=== PATIENT | female | born 2005 | race Caucasian/White ===

== ENCOUNTER 2024-12-23 22:27 | Emergency (ER) | payer OTHER, SELFPAY ==
[2024-12-23 22:30] VITALS: BP 129/80
--- NOTE | 2024-12-24 01:25 | ED.GENMED ---
History of Present Illness
General
Chief Complaint: Musculo-Skeletal Complaint
Source: patient
Exam Limitations: none
Time Seen by Provider: 12/24/24 01:15
Nursing documentation reviewed up to this point in time: agreed with
History of Present Illness
History of Present Illness:
This is a 18-year-old female who states while lifting weights this evening, wearing lifting shoes which are mostly sock like she inadvertently dropped a 45 pound plate onto her left foot. Injury occurred this evening around 10 PM. She noted
immediate significant pain to her left foot, no skin injury. She has not taken anything for pain and currently pain is markedly improved. She denies weakness nor numbness. No ankle pain nor leg pain. She denies fall.
No history of coagulopathy and takes no anticoagulants.
Past History
Past History
ED Past Medical History: Asthma and Psychiatric (Bipolar)
ED Past Surgical History: None
Social History
Tobacco: Non-smoker
Alcohol: None
Drug: None
Personal: Single
Living: with family
Employment: Employed
Family History
Family History: Other (Noncontributory)
Phy Exam
Physical Exam
Physical Exam:
PHYSICAL EXAMINATION:
General: 18-year-old female appears her stated age, bright and alert, pleasant, appears in no acute distress. Father is accompanying.
Neuro: alert and oriented. no focal neurological deficits
Psychiatric: well kept. interactive and cooperative
Musculoskeletal: [Left foot with very mild soft tissue swelling with minimal ecchymosis mid to distal dorsal aspect with mild to moderate tenderness along the mid to distal 3rd and 4th metatarsals. Skin is intact. There is
no abrasions. No palpable bony abnormality. No tenderness to the toes nor ankle nor heel. There is full range of motion of toes and ankle without difficulty. Dorsalis pedis pulses are full and equal bilaterally. Sensation and strength intact.
Skin: Warm and dry, normal color. Good turgor. No rash nor abrasion nor contusions.]
Course
Orders/Labs/Results
Orders:
Orders
12/23/24 22:32
Foot, Left 3 View [CR Foot - Left Min 3 Views] Urgent
Comment:
Reason For Exam: pain/swelling/injury
12/24/24 01:24
Ice Pack-Treatment DIRECTED
Location: left foot
Hipolito Wrap Left-Treatment ONCE
Ibuprofen [Motrin] 600 mg PO NOW STA
Vital Signs
Initial and Last Documented VS:
Initial Vital Signs
Temp Pulse Resp BP Pulse Ox
97.8 F 71 16 129/80 99
12/23/24 22:30 12/23/24 22:30 12/23/24 22:30 12/23/24 22:30 12/23/24 22:30
Last Documented Vital Signs
Temp Pulse Resp BP Pulse Ox
97.8 F 71 16 129/80 99
12/23/24 22:30 12/23/24 22:30 12/23/24 22:30 12/23/24 22:30 12/23/24 22:30
MDM/Problems Addressed
Differential Diagnosis Includes:
Concern for soft tissue contusion, foot fracture.
X-ray interpreted by myself. No evidence of fracture. There is mild soft tissue swelling noted anterior foot with a small rounded soft tissue nodule anterior midfoot only noted on the lateral film.
Will place an Hipolito wrap, give ibuprofen for pain and initiate local ice.
Recommend rest over the next several days. Prescription for ibuprofen has been provided.
Follow-up with PCP for recheck.
*Radiology
Radiology exam reviewed: preliminary read by ED provider (Left foot x-ray shows no evidence of fracture. Mild soft tissue swelling anterior aspect with a small rounded nodule within the soft tissue anterior midfoot that is only noted on the lateral
film.)
*Pulse Oximetry
Patient hypoxic: no
*Critical Care Note
Total Time (30-74mins, 75-104mins- exclusive of procedures): Not Applicable
ED Attending Note
-
Portions of this chart may have been created with voice recognition software.� Occasional wrong word or��sound alike� substitutions may have occurred due to the inherent limitations of voice recognition software.
Discharge Plan
Departure
Patient Disposition: Home (Routine Discharge)
Date of Disposition: 12/24/24
Time of Disposition: 01:25
Patient with high blood pressure during this ER visit?: No
Condition: Good
Discharge Problem:
Contusion of foot, left
Instructions: Contusion (DC), Using Cold for Pain
Prescriptions:
New
ibuprofen 600 mg tablet
600 mg PO Q6H PRN (Reason: fever or pain) Qty: 30 0RF
No Action
Trileptal
300 mg BID
Referrals:
Shukri Busch MD [Family Provider, Pediatrics] - Call in 1-3 days for appt
Interventions
Interventions:
*Risk Screen - Suicide Last Done: 12/23/24 22:30
*Neglect/Abuse Screening Last Done: 12/23/24 22:30
Discharge Date and Time
Print Language: CROATIAN
[2024-12-24] MEDS: MOTRIN 600 MG PO (01:27)
[2024-12-24 01:31] VITALS: BP 122/68
== END 2024-12-24 01:35 | disposition home or self-care (01) ==
LOC: EMR 22:27
PROVIDERS: EMERGENCY PHYSICIAN Emergency Medicine; FAMILY PHYSICIAN Pediatrics
DX: S90.32XA Contusion of left foot, initial encounter (principal); W20.8XXA Other cause of strike by thrown, projected or falling object, initial encounter; J45.909 Unspecified asthma, uncomplicated; F31.9 Bipolar disorder, unspecified
CPT/HCPCS: 99283; 73630